=== PATIENT | female | born 1965 | race Caucasian/White ===

== ENCOUNTER → 2016-07-31 | Outpatient (CLI) | payer MEDICARE, OTHER ==
[~2016-07-31] MED LIST: AMBIEN10 MG PO; AMOX TR-K CLV 81 TA1 PO; AMOXICILLIN500 M1 PO; ATORVASTATIN CA80 MG PO; AZELASTINE137 MCG/0.; BUSPAR15 M1 PO; CELEXA; CITALOPRAM HBR40 M1 PO; COMBIVENT RESPIM4 GM INH; CRESTOR40 MG PO; DESYREL100 MG PO; DITROPAN XL PO; FERROUS SULFAT325 MG PO; FLEXERIL10 MG PO; FLOVENT HFA10.6 G1 INH; FLUTICASONE PRO16 GM; GABAPENTIN300 M2 PO; HYDROCODON-ACE1 EAC5 PO; HYDROXYZINE PA100 MG PO; IBUPROFEN800 MG PO; LIPITOR40 MG PO; LISINOPRIL-HCTZ1 T19 PO; LITHIUM CARBON300 M1 PO; LITHIUM CARBON300 M2 PO; LOPRESSOR PO; LOSARTAN-HCTZ1 EAC1 PO; LOSARTAN-HCTZ1 EAC3 PO; LOSARTAN-HCTZ1 EACH PO; METOPROLOL SUC100 MG PO; METOPROLOL TAR100 MG PO; METOPROLOL TAR25 MG PO; MUCINEX D ER T1 EACH PO; MUCINEX DM ER1 EACH PO; NEURONTIN100 MG PO; NEURONTIN300 MG PO; OLANZAPINE20 MG PO; OMEPRAZOLE40 M1 PO; PHENERGAN25 M1 PO; SYMBICORT INH; TESSALON PERLE100 M1 PO; ZIPRASIDONE HCL40 M1 PO; ZIPRASIDONE HCL40 MG PO; ZOLPIDEM TARTRA10 M1 PO
--- NOTE | ~2016-07-31 | US6 ---
[facility] A Service of [facility] RADIOLOGY TEXT RESULTS PATIENT: ERIN CHEN LOCATION: [facility] : 65 UNIT #: [id number] AGE: [address]: Kari Frank MD SEX: F ORDER DR: [id number] [facility] [address] [place], [place] [address] [id number] O MR#: [id number] Acc #: [id number] NAME: ERIN CHEN : 1965 SEX: F STUDY DATE/TIME: 07/31/2016 9:04 UNIT: [facility] ROOM: STUDY DESCRIPTION: US Abdominal Limited Attending Physician: Kari Frank M.D. Referring Physician: Kari Frank M.D. Ordering Physician: Kari Frank M.D. Primary Care Physician: Kari Frank M.D. MEDICAL IMAGING REPORT This report is preliminary unless electronic signature is present EXAM Right upper quadrant ultrasound. DATE OF EXAM 07/31/2016 HISTORY Right upper quadrant abdominal pain for 2 weeks, status post cholecystectomy. FINDINGS The liver is homogeneous in echotexture and demonstrates no cystic or solid mass lesions. The intra and extrahepatic bile ducts are not dilated. The gallbladder is surgically absent as per patient history. The common duct measures 3 mm. The pancreas and right kidney are normal. IMPRESSION Surgical absence of the gallbladder. Otherwise, negative right upper quadrant ultrasound. Dictated by... Nathaniel Hernandez M.D. THIS IS AN ELECTRONICALLY VERIFIED REPORT Nathaniel Hernandez M.D. at 08/03/2016 10:35 AM STEVE/angelina TD: 07/31/2016 20:56 JOB #: [id number] MEDICAL IMAGING REPORT COPY
== END | disposition home or self-care (01) ==
LOC: CWCC 08:50
DX: R10.11 Right upper quadrant pain (principal); Z90.49 Acquired absence of other specified parts of digestive tract
CPT/HCPCS: 76705

== ENCOUNTER → 2016-10-20 | Outpatient (CLI) | payer MEDICARE, OTHER ==
--- NOTE | ~2016-10-20 | CT57 ---
[facility] A Service of [facility] RADIOLOGY TEXT RESULTS PATIENT: ERIN CHEN LOCATION: [facility] : 65 UNIT #: [id number] AGE: [address]: Kari Frank MD SEX: F ORDER DR: [id number] [facility] [address] [place], [place] [address] [id number] O MR#: [id number] [facility] #: [id number] NAME: ERIN CHEN : 1965 SEX: F STUDY DATE/TIME: 10/20/2016 9:50 UNIT: [facility] ROOM: STUDY DESCRIPTION: CT Chest Wo Cont Attending Physician: Kari Frank M.D. Ordering Physician: Kari Frank M.D. Primary Care Physician: Kari Frank M.D. MEDICAL IMAGING REPORT This report is preliminary unless electronic signature is present EXAMINATION CT chest without contrast. DATE 10/20/2016 HISTORY Physician's order states enlarged thoracic aorta screening. The patient states "not feeling well for 3 weeks," COPD. Hypertension. Chronic kidney disease. Cardiac disease. COMPARISON PA and lateral chest radiograph, 09/24/2016. CT chest PE protocol 06/14/2015. PROCEDURE 5 mm axial images through the chest without contrast. Sagittal and coronal reformatted images were obtained. This CT exam was performed with one or more of the following radiation dose reduction techniques: automatic exposure control, adjustment of mA and/or kV according to patient size, and iterative reconstruction. FINDINGS Aortic root caliber at the sinuses of Valsalva measures 3.4 cm in the coronal plane, which is within normal limits. There is mild fusiform aneurysmal dilation of the mid ascending thoracic aorta of 4.3 cm, not appreciably changed from 06/14/2015 where it measures 4.2 cm. It tapers to a normal caliber over the transverse aorta, with the descending thoracic aorta being of normal caliber, 2.7 cm in its mid-descending segment. The imaged upper abdominal aorta is of normal caliber. Mild coronary artery calcifications are present. No pericardial effusion. No pleural effusion. No pathologically enlarged lymph nodes. No STS. [facility] A Service of [facility] & [facility] RADIOLOGY TEXT RESULTS PATIENT: ERIN CHEN LOCATION: [facility] : 65 UNIT #: [id number] AGE: [address]: Kari Frank MD SEX: F ORDER DR: pneumothorax. No acute airspace disease. Cholecystectomy. Calcified granulomatous changes within the spleen. No acute osseous abnormalities. IMPRESSION 1. Mild fusiform aneurysmal dilation of the mid ascending thoracic aorta measuring 4.3 cm compared to 4.2 cm on 06/14/2015. 2. Mild coronary artery calcifications. 3. Cholecystectomy. 4. No acute chest findings. Dictated by... Radha Jade M.D. THIS IS AN ELECTRONICALLY VERIFIED REPORT Radha Jade M.D. at 10/21/2016 5:28 PM BOBBI/angelina TD: 10/21/2016 17:06 JOB #: [id number] MEDICAL IMAGING REPORT Page 1 of 1 COPY
--- NOTE | ~2016-10-20 | MY11 ---
[facility] A Service of [facility] RADIOLOGY TEXT RESULTS PATIENT: ERIN CHEN LOCATION: [facility] : 65 UNIT #: [id number] AGE: [address]: Kari Frank MD SEX: F ORDER DR: [id number] [facility] [address] [place], [place] [address] [id number] O MR#: [id number] Acc #: [id number] NAME: ERIN CHEN : 1965 SEX: F STUDY DATE/TIME: 10/20/2016 9:07 UNIT: [facility] ROOM: STUDY DESCRIPTION: MY Mammogram Screening Dig Silas Attending Physician: Kari Frank M.D. Ordering Physician: Kari Frank M.D. Primary Care Physician: Kari Frank M.D. MEDICAL IMAGING REPORT This report is preliminary unless electronic signature is present EXAM Digital screening mammogram 10/20/16 [facility]. HISTORY 51-year-old woman no risk elevation. Annual screen. COMPARISON Mammograms date to 01/10/07 with most recent diagnostic mammogram 09/11/13. FINDINGS Digital imaging of each breast was completed utilizing a two-view examination of each breast in craniocaudal and mediolateral-oblique projections. Review and interpretation of digital mammograms include a second review in conjunction with FDA-approved CAD device. There is a normal parenchymal presentation bilaterally consistent with the patient's age. There are no breast masses imaged and no parenchymal asymmetry is visualized. There are no suspicious microcalcifications and I see no focal architectural disturbance. ADDENDUM Breast parenchyma is fatty replaced. IMPRESSION Negative screening digital mammogram. One-year followup recommended. Patients over the age of 40 are entered into a reminder system with target due date for the next mammogram. A result letter will also be sent to the patient. BIRADS: 1 Negative Dictated by... [facility] A Service of [facility] RADIOLOGY TEXT RESULTS PATIENT: ERIN CHEN LOCATION: [facility] : 65 UNIT #: [id number] AGE: [address]: Kari Frank MD SEX: F ORDER DR: Gallo Dickens M.D. THIS IS AN ELECTRONICALLY VERIFIED REPORT Gallo Dickens M.D. at 10/20/2016 2:42 PM YUE/golria TD: 10/20/2016 13:59 JOB #: [id number] MEDICAL IMAGING REPORT Page 1 of 1 COPY
== END | disposition home or self-care (01) ==
LOC: CWCC 08:48
DX: Z12.31 Encounter for screening mammogram for malignant neoplasm of breast (principal); I77.89 Other specified disorders of arteries and arterioles; R92.8 Other abnormal and inconclusive findings on diagnostic imaging of breast; I71.2 Thoracic aortic aneurysm, without rupture; I25.10 Atherosclerotic heart disease of native coronary artery without angina pectoris; Z90.49 Acquired absence of other specified parts of digestive tract
CPT/HCPCS: 71250; G0202

== ENCOUNTER → 2017-01-22 | Day surgery (SDC) | payer MEDICARE, OTHER ==
--- NOTE | ~2017-01-22 | OR ---
Unit #: [id number] #: [id number] Patient: ERIN CHEN [id number] [address] [address] [id number] O MR#: [id number] NAME: ERIN CHEN ROOM: Date of Procedure: 01/22/2017 Admission Date: 01/22/2017 Surgeon: Usman Loyola M.D. : 1965 Attending Physician: Usman Loyola M.D. Referring Physician: Usman Loyola M.D. Primary Care Physician: Kari Frank M.D. OPERATIVE REPORT PREOPERATIVE DIAGNOSES 1. Iron deficiency anemia. 2. Anemia of chronic gastrointestinal blood loss. PROCEDURES PERFORMED Upper gastrointestinal endoscopy and biopsy as well as a push enteroscopy. POSTOPERATIVE DIAGNOSES 1. The patient has single gastric ulcer in the posterior aspect of the antrum. This had a grayish-white ulcer base and no stigmata of recent bleed. 2. Moderate prepyloric antral gastritis. 3. Distal grade 1 to 2 erosive esophagitis. 4. Rest of the examination up to third part of duodenum was normal. RECOMMENDATIONS 1. Follow up results of CLOtest. 2. The patient is being started on Protonix 40 mg p.o. once a day. 3. Ferrous sulfate 325 mg p.o. b.i.d. 4. The patient will be followed up in the office in a couple of months' time. She will require a repeat endoscopy in 3 months' time to document healing of ulcer. SEDATION USED MAC. DESCRIPTION OF PROCEDURE Following detailed explanation of potential risks and complications of an upper endoscopy and a push enteroscopy, namely perforation, bleeding, and complication related to sedation, the patient was brought to GI lab and laid in the left lateral decubitus position. Lubricated tip of the Olympus video upper endoscope was passed through the bite block into the proximal esophagus under direct vision. The entire esophageal mucosa was examined. The patient was noted to have grade 1 to 2 distal erosive esophagitis. The scope was then advanced into the gastric cavity and the latter was insufflated. Mucosa of the fundus, body, and antrum was examined. The patient was noted to have moderate prepyloric antral erosive gastritis. In addition, there was presence of a solitary gastric ulcer in the posterior aspect of the antrum. This was about 8 mm in size as a deep ulcer crater with grayish-white ulcer base and no stigmata of recent bleed. Pylorus was intubated with visualization of normal duodenal bulb and second and third part of the duodenum. Upon withdrawal and Unit #: [id number] #: [id number] Patient: ERIN CHEN retroflexion, incisura, cardia, and greater curve examined and biopsy obtained from the antrum for CLOtest. The scope was withdrawn in the distal esophagus. Entire esophageal mucosa was examined all the way up to pharynx. No additional findings noted. A colonoscope was used for push enteroscopy. At this time, the scope was advanced past the duodenum into the proximal jejunum. Again, no additional abnormalities or angiodysplasias were seen. The scope was withdrawn. The patient returned to the recovery area. She tolerated the procedure without any postprocedure complications. Dictated by... Betty Ferro/josue TD: 01/23/2017 04:55 JOB #: [id number] OPERATIVE REPORT Page 1 of 1 X Usman Loyola MD X PROCEDURE OPERATIVE NOTE
== END | disposition home or self-care (01) ==
LOC: COPS 10:06
DX: K25.9 Gastric ulcer, unspecified as acute or chronic, without hemorrhage or perforation (principal); K29.70 Gastritis, unspecified, without bleeding; K22.10 Ulcer of esophagus without bleeding; J44.9 Chronic obstructive pulmonary disease, unspecified; I12.9 Hypertensive chronic kidney disease with stage 1 through stage 4 chronic kidney disease, or unspecified chronic kidney disease; N18.3 Chronic kidney disease, stage 3 (moderate); E66.01 Morbid (severe) obesity due to excess calories; F17.210 Nicotine dependence, cigarettes, uncomplicated; Z90.49 Acquired absence of other specified parts of digestive tract; Z88.6 Allergy status to analgesic agent; Z79.899 Other long term (current) drug therapy
CPT/HCPCS: 82947; 87077